=== PATIENT | female | born 1985 | race Two or more races ===

== ENCOUNTER 2023-09-23 14:40 | Emergency (ER) | payer BC ==
[~2023-09-23] VITALS: Ht 162.6 cm; Wt 54.4 kg
[2023-09-23] MEDS ORDERED: TETANUS IMMUNE GLOBULIN 250 U/SYR DISP.SYRIN IM STA (15:05)
[2023-09-23] MEDS ORDERED: AMOX1TAB5 PO (15:15)
[2023-09-23] MEDS ORDERED: TETANUS DIPHTHERIA TOX. ADSOR 5 ML VIAL IM ONE (15:27)
[2023-09-23] MEDS ORDERED: TETANUS & DIPHTHERIA TOX,ADULT 0.5 ML VIAL IM ONE (15:45)
== END 2023-09-23 16:19 | disposition home or self-care (01) ==
LOC: ER 14:42
DX: S61.411A Laceration without foreign body of right hand, initial encounter (principal); W45.8XXA Other foreign body or object entering through skin, initial encounter; Y93.89 Activity, other specified; Y92.89 Other specified places as the place of occurrence of the external cause; Y99.8 Other external cause status